=== PATIENT | female | born 2005 | race Caucasian/White ===

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

== ENCOUNTER 2024-01-20 18:13 | Inpatient (IN) | payer MEDICAID, OTHER ==
[~2024-01-20] VITALS: Ht 172.7 cm; Wt 60.7 kg
[2024-01-20] MEDS ORDERED: CYMB1CAP5 PO (18:42)
[2024-01-20 21:13] LABS: HEMATOCRIT 35.9 % (36.0-47.0); HEMOGLOBIN 12.5 g/dl (12.0-15.5); MEAN CORPUSCULAR HEMOGLOBIN 30.9 pg (27.0-33.0); MEAN CORPUSCULAR HGB CONC 34.8 g/dl (32.0-36.5); MEAN CORPUSCULAR VOLUME 88.9 fl (80.0-96.0); PLATELET COUNT, AUTOMATED 215 10^3/uL (150-450); RED BLOOD COUNT 4.04 10^6/uL (4.00-5.40); WHITE BLOOD COUNT 7.4 10^3/uL (4.0-10.0)
[2024-01-20 21:32] LABS: AMPHETAMINES LEVEL URINE NEGATIVE (NEGATIVE); BARBITURATES URINE NEGATIVE (NEGATIVE); BENZODIAZEPINES URINE NEGATIVE (NEGATIVE); COCAINE METABOLITE URINE NEGATIVE (NEGATIVE); METHADONE URINE NEGATIVE (NEGATIVE); OPIATES URINE NEGATIVE (NEGATIVE); PHENCYCLIDINE URINE NEGATIVE (NEGATIVE)
[2024-01-20 21:34] LABS: ETHYL ALCOHOL (ETHANOL) < 0.003 % (0.000-0.010)
[2024-01-20 21:36] LABS: ALBUMIN 4.4 G/DL (3.2-5.2); ALKALINE PHOSPHATASE 39 U/L (46-116); ALT/SGPT 16 U/L (7.0-40); AST/SGOT 16 U/L (<34); BILIRUBIN,DIRECT 0.3 MG/DL (<0.4); BILIRUBIN,TOTAL 0.8 MG/DL (0.3-1.2); BLOOD UREA NITROGEN 13 MG/DL (9-23); CALCIUM LEVEL 9.1 MG/DL (8.5-10.1); CANNABINOIDS URINE POSITIVE (NEGATIVE); CARBON DIOXIDE LEVEL 23 MMOL/L (20-31); CHLORIDE LEVEL 108 MMOL/L (98-107); CREATININE FOR GFR 0.76 MG/DL (0.55-1.30); GLUCOSE, FASTING 86 MG/DL (60-100); POTASSIUM SERUM 3.9 MMOL/L (3.5-5.1); SALICYLATE LEVEL < 3.0 MG/DL (<30); SODIUM LEVEL 141 MMOL/L (136-145); TOTAL PROTEIN 6.8 G/DL (5.7-8.2)
[2024-01-20 21:37] LABS: THYROID STIMULATING HORMONE 2.103 uIU/ML (0.48-4.17)
[2024-01-20 21:40] LABS: HCG, SERUM QUALITATIVE NEGATIVE (NEGATIVE)
[2024-01-20] MEDS ORDERED: IBUP1TAB7 PO (22:07)
[2024-01-20] MEDS ORDERED: HOME MED LIST COMPLETE! XX SCH (22:10)
[2024-01-20] MEDS ORDERED: MAALOX 30 ML SUSP *UDC PO PRN ×2 (23:15→23:50)
[2024-01-20] MEDS ORDERED: MOM 30ML SUSPENSION UDC PO PRN ×2 (23:15→23:50)
[2024-01-20] MEDS ORDERED: diphenhydrAMINE 25MG CAP PO PRN ×2 (23:15→23:50)
[2024-01-20] MEDS ORDERED: traZODone 50 MG TAB PO PRN (23:15)
[2024-01-20] MEDS ORDERED: ACETAMINOPHEN TAB 650MG DOSE (2X325MG) PO PRN (23:15)
[2024-01-20] MEDS ORDERED: IBUPROFEN 400MG TAB PO PRN (23:15)
[2024-01-21 06:31] VITALS: BP 144/88; TEMP 97.4; O2SAT 99
[2024-01-21 16:12] VITALS: BP 107/65; TEMP 98.5; O2SAT 98
[2024-01-21] MEDS: ACETAMINOPHEN TAB 650MG DOSE (2X325MG) PO PRN (17:11)
[2024-01-21] MEDS: traZODone 50 MG TAB PO PRN (20:35)
[2024-01-22 06:20] VITALS: BP 95/50; TEMP 97.4; O2SAT 98
[2024-01-22] MEDS: IBUPROFEN 400MG TAB PO PRN (08:53)
[2024-01-22] MEDS: CARIPRAZINE 1.5MG CAPSULE (VRAYLAR) PO SCH (10:44)
[2024-01-22] MEDS: IBUPROFEN 800 MG TAB PO ONE (10:45)
[2024-01-22 17:05] VITALS: BP 119/56; TEMP 98.4; O2SAT 98
[2024-01-23 06:31] VITALS: BP 102/53; TEMP 98.7; O2SAT 98
[2024-01-23] MEDS ORDERED: VRAY3CAP PO (08:26)
[2024-01-23] MEDS: CARIPRAZINE 3MG CAPSULE (VRAYLAR) PO SCH (08:33)
[2024-01-24] MEDS ORDERED: ABIL1TAB11 PO (12:19)
== END 2024-01-23 11:45 | disposition home or self-care (01) | DRG 753 ==
LOC: M ED 18:13 → M ED INP 23:26 → M PSY 01-21 01:30
PROVIDERS: ADMIT Student in an Organized Health Care Education/Training Program; ATTEND Psychiatry & Neurology Psychiatry
DX: F31.9 Bipolar disorder, unspecified (principal); F42.9 Obsessive-compulsive disorder, unspecified; R09.82 Postnasal drip; F41.9 Anxiety disorder, unspecified; Z91.51 Personal history of suicidal behavior; Z81.8 Family history of other mental and behavioral disorders; Z81.1 Family history of alcohol abuse and dependence; Z59.86 Financial insecurity; Z91.011 Allergy to milk products; Z11.52 Encounter for screening for COVID-19

== ENCOUNTER → 2024-07-16 | Outpatient (CLI) | payer MEDICAID ==
[~2024-07-16] MED LIST changes: +ABIL1TAB11 PO; +CYMB1CAP5 PO; +IBUP1TAB7 PO; +ONDA-282 PO; -ONDA4TAB6 PO; +VRAY3CAP PO
== END ==
LOC: M RAD 14:24
PROVIDERS: ATTEND Physician Assistant
DX: R39.14 Feeling of incomplete bladder emptying (principal)